=== PATIENT | female | born 1990 | race Asian ===

== ENCOUNTER 2017-02-26 12:30 | Emergency (ER) | payer OTHER ==
[2017-02-26] MEDS ORDERED: Ondansetron INJ* 2 MG/ML VIAL IV ONE ×2 (13:58→19:25)
[2017-02-26] MEDS ORDERED: Ketorolac INJ* 30 MG/ML 1 ML VIAL IV ONE (13:58)
[2017-02-26] MEDS: NS 0.9% 1000 ML* 2,000 ML IV ONE ×2 (14:15→14:51)
[2017-02-26 14:18] LABS: Hematocrit 45 % (35-47); Hemoglobin 15.2 g/dl (12.0-16.0); Mean Corpuscular HGB Conc 34 g/dl (31-36); Mean Corpuscular Hemoglobin 31 pg (27-31); Mean Corpuscular Volume 90 fL (80-97); Mean Platelet Volume 8 um3 (7.4-10.4); Red Blood Count 4.97 10^6/ul (4.0-5.4); Red Cell Distribution Width 12 % (10.5-15); White Blood Count 11.1 10^3/ul (3.5-10.8)
[2017-02-26 14:37] LABS: ALT 11 U/L (7-52); AST 20 U/L (13-39); Albumin 4.9 g/dL (3.2-5.2); Alkaline Phosphatase 52 U/L (34-104); Anion Gap 12 mmol/L (2-11); BUN/Creatinine Ratio 21.7 (8-20); Blood Urea Nitrogen 15 mg/dL (6-24); C Reactive Protein 13.58 mg/L (< 5.00); CO2 Carbon Dioxide 22 mmol/L (22-32); Calcium 9.5 mg/dL (8.6-10.3); Chloride 100 mmol/L (101-111); EGFR African American 133.3 (>60); EGFR Non-African American 103.7 (>60); Globulin 2.6 g/dL (2-4); Glucose 101 mg/dL (70-100); Lipase 17 U/L (11.0-82.0); Potassium 3.2 mmol/L (3.5-5.0); Sodium 134 mmol/L (133-145); Total Protein 7.5 g/dL (6.4-8.9)
--- NOTE | 2017-02-26 14:43 | ED ---
Abdominal Pain/Female - HPI Summary HPI Summary: 26 female presents with complaints of profuse vomiting, feeling feverish and lightheadedness that began around 0500 today 02/26/17. Patient states she has some diffuse abdominal pain/cramping but does not appear to be localized to one quadrant. She denies diarrhea, blood in stool or vomit and changes to bowel movements. Admits to chronic loose stools. Denies urinary and genitalia symptoms. Denies , has IUD. She has not taken any medication for the current symptoms. She has been unable to keep anything down. Has experienced about 7-8 episodes of vomiting. Afebrile currently. No significant medical problems. Denies chest pain, difficulty breathing, and headache. Has not had the flu shot this year. At left over take out [place] food for lunch yesterday and made steak that she states was rare last night for dinner. - History of Current Complaint Hx Obtained From: Patient Hx Last Menstrual Period: 2 MONTHS AGO (HAS IUD) ?: No Onset/Duration: Sudden Onset, Lasting Hours Timing: Constant Severity Initially: Mild Severity Currently: None Pain Intensity: 0 Pain Scale Used: 0-10 Numeric Location: Diffuse Radiates: No Character: Cramping Aggravating Factor(s): Food, Movement Alleviating Factor(s): Vomiting Associated Signs and Symptoms: Positive: Fever, Decreased Appetite, Nausea, Vomiting <June Miner - Last Filed: 02/26/17 21:23> - HPI Summary HPI Summary: I was available for consultation. This patient was seen by mid level provider. The patient was not presented, seen, or examined by me. WR. <Cortez Keene - Last Filed: 02/27/17 07:44> - History of Current Complaint Chief Complaint: EDNauseaVomitDiarrh Stated Complaint: VOMITING/FEVER/BODY ACHES Time Seen by Provider: 02/26/17 13:43 Allergies/Adverse Reactions: Allergies Allergy/AdvReac Type Severity Reaction Status Date / Time Sulfa Antibiotics Allergy Severe "EXTREMEM Verified 06/27/16 20:34 ACID REFLUX" Sulfate Allergy Severe "EXTREME Verified 06/27/16 20:34 ACID REFLUX" Amoxicillin Allergy Intermediate Rash Verified 06/27/16 20:34 PMH/Surg Hx/FS Hx/Imm Hx Respiratory History: Reports: Hx Asthma Psychiatric History: Denies: Hx Eating Disorder - Surgical History Surgery Procedure, Year, and Place: none - Immunization History Immunizations Up to Date: Yes Infectious Disease History: Denies: Traveled Outside the [place] in Last 30 Days - Family History Known Family History: Positive: None - Social History Alcohol Use: Rare Substance Use Type: Reports: None Smoking Status (MU): Never Smoked Tobacco <June Miner - Last Filed: 02/26/17 21:23> Review of Systems Positive: Fever, Chills Eyes: Negative ENT: Negative Cardiovascular: Negative Respiratory: Negative Positive: Vomiting, Nausea Genitourinary: Negative Positive: Myalgia Skin: Negative Neurological: Negative Psychological: Normal All Other Systems Reviewed And Are Negative: Yes <June Miner - Last Filed: 02/26/17 21:23> Physical Exam Triage Information Reviewed: Yes Vital Signs On Initial Exam: Initial Vitals Temp Pulse Resp BP Pulse Ox 98.7 F 121 20 83/58 100 02/26/17 12:31 02/26/17 12:31 02/26/17 12:31 02/26/17 12:31 02/26/17 12:31 tachycardia and hypotension noted. Patient's BP was compared to previous and is typically low 110/100 systolic. However due to dehydration and lowering of BP fluids x 3 bags administered in ED. Vital Signs Reviewed: Yes Appearance: Positive: No Pain Distress, Well-Nourished, Ill-Appearing - nauseated Skin: Positive: Warm, Skin Color Reflects Adequate Perfusion, Dry Head/Face: Positive: Normal Head/Face Inspection Eyes: Positive: Normal, Conjunctiva Clear ENT: Positive: Normal ENT inspection, Hearing grossly normal, Pharynx normal, TMs normal Neck: Positive: Supple, Nontender, No Lymphadenopathy Respiratory/Lung Sounds: Positive: Clear to Auscultation, Breath Sounds Present. Negative: Rhonchi, Wheezes Cardiovascular: Positive: Normal, RRR, Pulses are Symmetrical in both Upper and Lower Extremities Abdomen Description: Positive: No Organomegaly, Soft, Bruit, McBurney's Point Tenderness, Other: - tender on palpation of RLQ, patient states this was also tender a week ago when evaluated by her PCP.Only tender on palpation. Patient was re-checked after toradol administration and was still experiencing pain on palpation with wincing. denies any other tenderness. Rovsing, psoas and rebound negative. Negative: CVA Tenderness (R), CVA Tenderness (L), Distended, Guarding , Hernia @, Peritoneal Signs Bowel Sounds: Positive: Present, Hyperactive Pelvic Exam: Positive: external exam normal - per patient Musculoskeletal: Positive: Normal, Strength/ROM Intact Neurological: Positive: Normal, Sensory/Motor Intact, Alert, Oriented to Person Place, Time, CN Intact II-III, Normal Gait Psychiatric: Positive: Normal, Affect/Mood Appropriate AVPU Assessment: Alert <June Miner - Last Filed: 02/26/17 21:23> Vital Signs On Initial Exam: Initial Vitals Temp Pulse Resp BP Pulse Ox 98.7 F 121 20 83/58 100 02/26/17 12:31 02/26/17 12:31 02/26/17 12:31 02/26/17 12:31 02/26/17 12:31 <Cortez Keene - Last Filed: 02/27/17 07:44> Diagnostics - Vital Signs Vital Signs Temp Pulse Resp BP Pulse Ox 02/26/17 13:35 100.1 F 116 24 85/56 100 02/26/17 12:31 98.7 F 121 20 83/58 100 - Laboratory Result Diagrams: 02/26/17 14:00 02/26/17 14:00 Lab Statement: Any lab studies that have been ordered have been reviewed, and results considered in the medical decision making process. <June Miner - Last Filed: 02/26/17 21:23> - Vital Signs Vital Signs Temp Pulse Resp BP Pulse Ox 02/26/17 19:48 99.1 F 116 19 110/68 02/26/17 16:03 113 98 02/26/17 16:00 99/70 02/26/17 15:58 115 98 02/26/17 15:31 107 91/51 100 02/26/17 15:30 107 86/39 99 02/26/17 15:00 105 92/47 95 02/26/17 14:32 102 16 103/57 100 02/26/17 14:30 102 103/68 99 02/26/17 14:19 100 103/57 100 02/26/17 14:03 106 100 02/26/17 14:00 101/67 02/26/17 13:59 106 100 02/26/17 13:48 107 99 02/26/17 13:47 106/71 02/26/17 13:35 100.1 F 116 24 85/56 100 02/26/17 12:31 98.7 F 121 20 83/58 100 - Laboratory Lab Results: Lab Results 02/26/17 02/26/17 02/26/17 Range/Units 14:00 14:00 14:00 WBC 11.1 H (3.5-10.8) 10^3/ul RBC 4.97 (4.0-5.4) 10^6/ul Hgb 15.2 (12.0-16.0) g/dl Hct 45 (35-47) % MCV 90 (80-97) fL MCH 31 (27-31) pg MCHC 34 (31-36) g/dl RDW 12 (10.5-15) % Plt Count 213 (150-450) 10^3/ul MPV 8 (7.4-10.4) um3 Neut % (Auto) 96.3 H (38-83) % Lymph % (Auto) 1.6 L (25-47) % [place] % (Auto) 1.8 (1-9) % Eos % (Auto) 0.1 (0-6) % Baso % (Auto) 0.2 (0-2) % Absolute Neuts (auto) 10.7 H (1.5-7.7) 10^3/ul Absolute Lymphs (auto) 0.2 L (1.0-4.8) 10^3/ul Absolute Monos (auto) 0.2 (0-0.8) 10^3/ul Absolute Eos (auto) 0 (0-0.6) 10^3/ul Absolute Basos (auto) 0 (0-0.2) 10^3/ul Absolute Nucleated RBC 0.01 10^3/ul Nucleated RBC % 0 Sodium 134 (133-145) mmol/L Potassium 3.2 L (3.5-5.0) mmol/L Chloride 100 L (101-111) mmol/L Carbon Dioxide 22 (22-32) mmol/L Anion Gap 12 H (2-11) mmol/L BUN 15 (6-24) mg/dL Creatinine 0.69 (0.51-0.95) mg/dL Est GFR ( Amer) 133.3 (>60) Est GFR (Non-Af Amer) 103.7 (>60) BUN/Creatinine Ratio 21.7 H (8-20) Glucose 101 H (70-100) mg/dL Lactic Acid 1.5 (0.5-2.0) mmol/L Calcium 9.5 (8.6-10.3) mg/dL Magnesium 1.6 L (1.9-2.7) mg/dL Total Bilirubin 1.80 H (0.2-1.0) mg/dL AST 20 (13-39) U/L ALT 11 (7-52) U/L Alkaline Phosphatase 52 (34-104) U/L C-Reactive Protein 13.58 H (< 5.00) mg/L Total Protein 7.5 (6.4-8.9) g/dL Albumin 4.9 (3.2-5.2) g/dL Globulin 2.6 (2-4) g/dL Albumin/Globulin Ratio 1.9 (1-3) Lipase 17 (11.0-82.0) U/L Beta HCG, Quant < 0.60 mIU/mL Urine Color Urine Appearance Urine pH (5-9) Ur Specific [place] (1.010-1.030) Urine Protein (Negative) Urine Ketones (Negative) Urine Blood (Negative) Urine Nitrate (Negative) Urine Bilirubin (Negative) Urine Urobilinogen (Negative) Ur Leukocyte Esterase (Negative) Urine Glucose (Negative) Influenza A (Rapid) (Negative) Influenza B (Rapid) (Negative) 02/26/17 02/26/17 Range/Units 14:46 16:00 WBC (3.5-10.8) 10^3/ul RBC (4.0-5.4) 10^6/ul Hgb (12.0-16.0) g/dl Hct (35-47) % MCV (80-97) fL MCH (27-31) pg MCHC (31-36) g/dl RDW (10.5-15) % Plt Count (150-450) 10^3/ul MPV (7.4-10.4) um3 Neut % (Auto) (38-83) % Lymph % (Auto) (25-47) % [place] % (Auto) (1-9) % Eos % (Auto) (0-6) % Baso % (Auto) (0-2) % Absolute Neuts (auto) (1.5-7.7) 10^3/ul Absolute Lymphs (auto) (1.0-4.8) 10^3/ul Absolute Monos (auto) (0-0.8) 10^3/ul Absolute Eos (auto) (0-0.6) 10^3/ul Absolute Basos (auto) (0-0.2) 10^3/ul Absolute Nucleated RBC 10^3/ul Nucleated RBC % Sodium (133-145) mmol/L Potassium (3.5-5.0) mmol/L Chloride (101-111) mmol/L Carbon Dioxide (22-32) mmol/L Anion Gap (2-11) mmol/L BUN (6-24) mg/dL Creatinine (0.51-0.95) mg/dL Est GFR ( Amer) (>60) Est GFR (Non-Af Amer) (>60) BUN/Creatinine Ratio (8-20) Glucose (70-100) mg/dL Lactic Acid (0.5-2.0) mmol/L Calcium (8.6-10.3) mg/dL Magnesium (1.9-2.7) mg/dL Total Bilirubin (0.2-1.0) mg/dL AST (13-39) U/L ALT (7-52) U/L Alkaline Phosphatase (34-104) U/L C-Reactive Protein (< 5.00) mg/L Total Protein (6.4-8.9) g/dL Albumin (3.2-5.2) g/dL Globulin (2-4) g/dL Albumin/Globulin Ratio (1-3) Lipase (11.0-82.0) U/L Beta HCG, Quant mIU/mL Urine Color Yellow Urine Appearance Clear Urine pH 6.0 (5-9) Ur Specific [place] 1.013 (1.010-1.030) Urine Protein Negative (Negative) Urine Ketones 2+ H (Negative) Urine Blood Negative (Negative) Urine Nitrate Negative (Negative) Urine Bilirubin Negative (Negative) Urine Urobilinogen Negative (Negative) Ur Leukocyte Esterase Negative (Negative) Urine Glucose Negative (Negative) Influenza A (Rapid) Negative (Negative) Influenza B (Rapid) Negative (Negative) Result Diagrams: 02/26/17 14:00 02/26/17 14:00 Lab Statement: Any lab studies that have been ordered have been reviewed, and results considered in the medical decision making process. <Cortez Keene - Last Filed: 02/27/17 07:44> Re-Evaluation - Re-Evaluation First Eval Re-Evaluation Time: 14:30 Change: Improved - patient was feeling much better after fluids, toradol and zofran Second Eval Re-Evaluation Time: 17:06 Change: Improved - patient still feeling better, almost finished with contrast to have CT scan <June Miner - Last Filed: 02/26/17 21:23> Abdominal Pain Fem Course/Dx - Course Course Of Treatment: Given toradol, fluids and zofran- patient had relief. Labs and urinalysis ordered. Influenza culture obtained and negative. Due to PE findings of RLQ pain on palpation on-going x 1 week with new symptoms of vomiting and nausea and lab results of elevated WBC with left shift and dehydration, CT scan was appropriate. Magnesium was low and given 1 gram IV to replenish. Potassium also low given 40mg oral. Awaiting CT scan and results before discharge to rule out appendicitis. If this is normal, patient appears to be suffering from a viral GI gastroenteritis or food posioning. Patient signed out to Shala Corley PA-C at 17:30. - Diagnoses Differential Diagnosis: Positive: Appendicitis, Constipation, Ovarian Cyst, , Urinary Tract Infection, Other - gastroenteritis, food poisoining - Provider Notifications Discussed Care Of Patient With: Shala Corley PA-C, Dr Keene <June Miner - Last Filed: 02/26/17 21:23> <Cortez Keene - Last Filed: 02/27/17 07:44> - Diagnoses Provider Diagnoses: Nausea & vomiting Discharge - Discharge Plan Discharge Disposition Comment: Signed out to Shala Corley PA-C at 17:30 <June Miner - Last Filed: 02/26/17 21:23> <Cortez eKene - Last Filed: 02/27/17 07:44> - Discharge Plan Condition: Stable Disposition: OTHER Prescriptions: Ondansetron ODT TAB* [Zofran 4 MG Odt TAB*] 4 mg PO Q8H PRN #9 tab.odt PRN Reason: Nausea Patient Education Materials: Dehydration (ED), Gastroenteritis (ED) Referrals: Bebeto Romeo MD [Primary Care Provider] - Additional Instructions: You appear to have a viral gastroenteritis. This may last 24-72 hours. It is important that you continue to drink plenty of hydrating fluids to avoid recurrence of dehydration. Nausea medication has been sent to your pharmacy for you. Also, you may take acetaminophen alternating with ibuprofen for pain, fever. Follow-up with your PCP if symptoms persist. *if you develop a fever > 103F despite taking medications, develop intractable vomiting/diarrhea longer than 24 hours and/or have chest pain, difficulty breathing, return to ED
[2017-02-26 15:15] LABS: Magnesium 1.6 mg/dL (1.9-2.7)
[2017-02-26 16:13] LABS: Urine Bilirubin Negative (Negative); Urine Glucose Negative (Negative); Urine Nitrite Negative (Negative)
[2017-02-26] MEDS ORDERED: Magnesium Sulfate 1 GM IV* 1 GM/100 ML BAG IV ONE (16:54)
[2017-02-26] MEDS ORDERED: NS 0.9% 1000 ML* 1,000 ML IV ONE (17:07)
[2017-02-26] MEDS ORDERED: Potassium Chlor TAB* 20 MEQ TAB.ER PO ONE (17:27)
[2017-02-26] MEDS ORDERED: Iohexol 300* (CONTRAST) 10 ML SDV IV ONE (17:30)
--- NOTE | 2017-02-26 18:32 | RAD ---
INDICATION: Vomiting, fever, body aches. Assess for appendicitis. COMPARISON: None. TECHNIQUE: Multidetector CT images were obtained from the lung bases to the ischial tuberosities with 76 mL Omnipaque 300 IV and oral contrast. Multiplanar reformation. REPORT: Unremarkable visualized inferior thorax. Mild periportal edema corresponds with high state of hydration with full physiologic distention of the IVC noted. No suspicious finding of the liver. Negative for CT abnormality of the gallbladder, pancreas, spleen. Negative for CT abnormality of the upper GI, small bowel, retrocecal appendix, colon. Negative for ascites, free air, hernias. Normal adrenal glands. Unremarkable kidneys with symmetric nephrograms and pyelograms. Unremarkable nondilated ureters and moderately distended urinary bladder. Anteverted uterus. IUD in place. Unremarkable adnexal regions. Unremarkable dominant retroperitoneal vasculature. Negative for lymphadenopathy. Chronic appearing bilateral L5 spondylolysis without associated spondylolisthesis. Multilevel mild spinal dysraphism from L5 caudal without CT evidence for a myelomeningocele. No suspicious osseous lesions evident. IMPRESSION: 1. Normal appendix documented. 2. No acute abdominal pelvic pathologic process evident.
--- NOTE | 2017-02-26 19:32 | ED ---
Progress - Progress Note Progress Note: Pt signed out by June Miner PA-C. Pt presented today w/ acute onset nausea and vomiting at 500. This was followed by chills and subjective fever. She came in today as she felt horrible. Labs indicate dehydration and lack of infectious cause such as influenza, pancreatitis, hepatitis, etc. Her WBC's are mildly elevated and CT scan normal. She has had improvement of sx since receiving IVF, zofran, potassium PO, magnesium IV and toradol. Nausea has returned after many hours and is requesting more medication for this now. Will provide and d/c home with PO zofran as well - encouraged fluids, rest and f/u w/ PCP as she feel necessary. Suspect this is a viral GI infection that should be self-limiting in 24-72 hours If symptoms worsen, may return to ED. Pt agrees w/ plan. Re-Evaluation - Re-Evaluation First Eval Re-Evaluation Time: 14:30 Change: Improved - patient was feeling much better after fluids, toradol and zofran Second Eval Re-Evaluation Time: 17:06 Change: Improved - patient still feeling better, almost finished with contrast to have CT scan Course/Dx - Course Course Of Treatment: Given toradol, fluids and zofran- patient had relief. Labs and urinalysis ordered. Due to PE findings of RLQ pain on palpation on-going x 1 week with new symptoms of vomiting and nausea and lab results of elevated WBC with left shift and dehydration, CT scan was appropriate. Magnesium was low and given 1 gram IV to replenish. Potassium also low given 40mg oral. - Diagnoses Provider Diagnoses: Nausea & vomiting
[2017-02-26] MEDS ORDERED: PROCHLORPERAZINE INJ 5 MG/ML 2 ML VIAL IV ONE (19:35)
[2017-02-26 19:50] VITALS: BP 110/68
== END 2017-02-26 19:48 ==
LOC: ED 12:30
DX: R11.2 Nausea with vomiting, unspecified (principal); R50.9 Fever, unspecified; R42 Dizziness and giddiness; M79.1 Myalgia
CPT/HCPCS: 36415; 74177; 80053; 81003; 83605; 83690; 83735; 84702; 85025; 86140; 87502; 96361; 96374; 96375; 99283; A9270-GY; J0780; J1885; J2405; Q9967

== ENCOUNTER 2019-10-24 20:45 | Emergency (ER) | payer OTHER ==
[2019-10-24 21:00] VITALS: BP 101/66
--- NOTE | 2019-10-24 21:14 | UC ---
Skin Complaint HPI - HPI Summary HPI Summary: 29 yo began use of lamotrigine 25mg 2 weeks ago for treatment of anxiety and depression, with development of a pruritic whole body rash x 2 days ago. Increasing itch tonight with spread of rash on anterior thighs and trunk. She does not have associated fever, and has no tongue or oral swelling. Hx of exercise-induced asthma, with use of albuterol today after shovelling snow. Past hx of psoriasis. - History of Current Complaint Chief Complaint: UCRash Time Seen by Provider: 10/24/19 21:00 Stated Complaint: RASH Hx Obtained From: Patient Hx Last Menstrual Period: iud Onset/Duration: Gradual Onset, Lasting Days - 3 Skin Exposure Onset/Duration: Weeks Ago - began lamotrigine 2 weeks ago Onset Severity: Mild Current Severity: Moderate Pain Intensity: 0 Location: Diffuse Character: Pruritus, Redness, Raised Aggravating Factor(s): Clothing, Touch Alleviating Factor(s): OTC Creams/Salves - tried 1% hydrocortisone Associated Signs & Symptoms: Negative: Nausea, Vomiting, Difficulty Breathing Related History: Recent change in medication - Allergy/Home Medications Allergies/Adverse Reactions: Allergies Allergy/AdvReac Type Severity Reaction Status Date / Time amoxicillin Allergy Rash Verified 12/06/18 08:29 Sulfa (Sulfonamide Allergy See Comment Verified 12/06/18 08:29 Antibiotics) Home Medications: Home Medications lamoTRIgine TAB(*) [LaMICtal TAB(*)] 25 mg PO BEDTIME 10/24/19 [History Confirmed 10/24/19] PMH/Surg Hx/FS Hx/Imm Hx Previously Healthy: Yes Psychological History: Anxiety, Depression - Surgical History Surgical History: None Surgery Procedure, Year, and Place: none - Family History Known Family History: Positive: Other - mother of CA colon; father has dementia - Social History Occupation: Employed Full-time Lives: Dormitory/Roommates Alcohol Use: Occasionally Substance Use Type: None Smoking Status (MU): Never Smoked Tobacco Review of Systems All Other Systems Reviewed And Are Negative: Yes Constitutional: Positive: Negative Skin: Positive: Rash Eyes: Positive: Negative ENT: Positive: Negative Respiratory: Positive: Other - hx of exercise-induced asthma Cardiovascular: Positive: Negative Gastrointestinal: Positive: Negative Genitourinary: Positive: Negative Motor: Positive: Negative Neurovascular: Positive: Negative Musculoskeletal: Negative: Arthralgia Neurological: Positive: Negative Psychological: Positive: Negative - mood currently stable. Planned follow up with [facility] nurse practitioner. Is Patient Immunocompromised?: No Physical Exam Triage Information Reviewed: Yes Appearance: Well-Appearing, No Pain Distress Vital Signs: Initial Vital Signs Temp 98.8 F 10/24/19 20:54 Pulse 119 10/24/19 20:54 Resp 16 10/24/19 20:54 BP 101/66 10/24/19 20:54 Pulse Ox 98 10/24/19 20:54 Eyes: Positive: Conjunctiva Clear ENT: Positive: Normal ENT inspection, Pharyngeal erythema, Other - no oral swelling. Neck: Positive: Supple, Nontender, No Lymphadenopathy Respiratory: Positive: Lungs clear, Normal breath sounds Cardiovascular Exam: Normal Cardiovascular: Positive: RRR, No Murmur Musculoskeletal Exam: Normal Neurological Exam: Normal Neurological: Positive: Alert, Muscle Tone Normal Psychological Exam: Normal Skin: Positive: Rashes - scattered macular papular rash on trunk, anterior thighs and upper arms. Almost confluent on the upper medial 1/3 of the thigh, more scattered in other areas, with less on the posterior trunk and legs. Course/Dx - Course Course Of Treatment: Discussed pros and cons of oral steroids, and advised regarding possible affect on sleep and mood. Oral benadryl as needed, and will prescribe a topical steroid for use particularly in the event that she does not tolerate oral steroids. - Differential Diagnoses - Skin Complaint Differential Diagnoses: Allergic Reaction, Angioedema, Cortez-Valentino Syndrome - Diagnoses Provider Diagnosis: Allergic drug reaction Discharge ED - Sign-Out/Discharge Documenting (check all that apply): Patient Departure All imaging exams completed and their final reports reviewed: No Studies - Discharge Plan Condition: Stable Disposition: HOME Prescriptions: predniSONE [Prednisone 20 MG TAB] 40 mg PO DAILY #8 tablet Triamcinolone 0.5% CREAM(NF) [Triamcinolone 0.5% CREAM*] 1 applic TOPICAL BID # 60 mg Patient Education Materials: Adverse Drug Reaction (ED) Referrals: Bebeto Romeo MD [Primary Care Provider] - Additional Instructions: You have taken prednisone 40mg tonight. If you tolerate it, take the next dose and following doses daily in the morning with food. Use benadryl 25mg every 4 hours if needed for itch. You can soak in oatmeal baths to relieve itching (can create by placing a handful of oats in cheesecloth and squeezing the extract). Stay well hydrated and moisturized --anticipate that you will have some skin flaking as the rash resolves. Anticipate that it will take up to a week for the rash to subside, and have a follow up should the rash worsen despite these measures. - Billing Disposition and Condition Condition: STABLE Disposition: Home
[2019-10-24] MEDS ORDERED: diPHENhydraMINE PO* 25 MG PO ONE (21:26)
--- OUTSIDE RECORDS SUMMARY | 2019-10-25 16:33 | XMS REPORT | Summary of Care ---
:1990 Author Organization [facility] Address [address] [facility] [place] [address] Care Team Providers Name Role Phone Bebeto Romeo Primary Care Provider Reason for Referral MRI/CAT/PET Scan (Routine) Status Reason Specialty Diagnoses / Referred By Referred To Procedures Contact Contact Authorized Diagnoses Pelvic pain Bebeto Romeo MD Procedures US PELVIC COMPLETE WITH EV PROBE [address] [place] [address] Reason for Visit Reason Comments Other pt has cyst on inside of right knee, would like referral to specialist. Follow Up pt presents for follow up with meds, flu and 2nd hep B dose. Encounter Details Date Type Department Care Team Description 10/06/2019 Office Visit [facility] Bebeto Romeo MD Pelvic pain (Primary Dx); Practice [address] [facility] Need for prophylactic vaccination against hepatitis A; [address] [place] [address] Anxiety and depression; [place] [address] Skin lesion of right lower limb [phone] Allergies Active Allergy Reactions Severity Noted Date Comments Amoxicillin, Anhydrous Rash 06/10/2010 As a child Cat Hair Extract Hives 09/22/2013 Dog Respiratory Reaction 02/13/2017 Kiwi Extract Other 01/08/2012 Tongue feels itchy Pineapple Other 01/08/2012 Tongue gets itchy and tongue swells. Sulfa Antibiotics GI Reaction High 06/27/2016 documented as of this encounter (statuses as of 10/07/2019) Medications Medication Sig Dispensed Refills Start Date End Date Status IBUPROFEN 200 PO Take by mouth. 0 Active Levonorgestrel by Intrauterine 0 Active (MIRENA) 20 route. MCG/24HR Intrauterine IUD fluticasone Take 2 Puffs by 1 Inhaler 5 02/13/2017 Active (FLOVENT) 44 inhalation TWICE MCG/ACT Inhalation DAILY. Aerosol clonazePAM Take 1 Tab by 30 Tab 0 09/09/2017 Active (KLONOPIN) 0.5 MG mouth DAILY Oral Tab NEEDED (anxiety). Max Daily Amount: 0.5 mg. famotidine (PEPCID) Take 1 Tab by 30 Tab 0 05/17/2018 Active 40 MG Oral mouth DAILY. TabIndications: Hives, Epigastric pain escitalopram Take 1 Tab by 30 Tab 0 09/17/2018 Active (LEXAPRO) 5 MG Oral mouth DAILY. Tab VENTOLIN HFA 108 INHALE 2 PUFFS BY 18 g 0 05/30/2019 Active (90 Base) MCG/ACT MOUTH EVERY 6 Inhalation Aero HOURS NEEDED SolnIndications: FOR ASTHMA Mild asthma without complication, unspecified whether persistent propranolol TAKE 1 TABLET BY 0 03/01/2018 10/06/20 Discontinued (INDERAL) 10 MG MOUTH TWICE A DAY 19 Oral Tab NEEDED FOR ANXIETY OR PANIC documented as of this encounter (statuses as of 10/07/2019) Active Problems Problem Noted Date Knee pain, bilateral 09/22/2013 Allergic rhinitis due to cats 07/09/2010 Allergic rhinitis due to dust 07/09/2010 Mild asthma 07/09/2010 Anxiety and depression documented as of this encounter (statuses as of 10/07/2019) Resolved Problems Problem Noted Date Resolved Date Gastritis 07/09/2010 06/18/2011 Unspecified gastritis and gastroduodenitis without mention 07/01/20102009 of hemorrhage Unspecified asthma(493.90) 06/10/2010 07/09/2010 ENVIRONMENTAL ALLERGIES 06/10/2010 07/09/2010 Overview: ? Bee stings documented as of this encounter (statuses as of 10/07/2019) Immunizations Name Administration Dates Next Due Hep A / Hep B Combined Vaccine (Adult) 10/06/2019, 01/24/2019 Influenza (IM) Preservative Free 10/06/2019, 01/24/2019 TDAP Vaccine 01/24/2019 documented as of this encounter Social History Tobacco Use Types Packs/Day Years Used Date Never Smoker Smokeless Tobacco: Never Used Alcohol Use Drinks/Week oz/Week Comments No Sex Assigned at Date Recorded Not on file Job Start Date Occupation Industry Not on file Not on file Not on file Travel History Travel Start Travel End No recent travel history available. documented as of this encounter Last Filed Vital Signs Vital Sign Reading Time Taken Comments Blood Pressure 104/64 10/06/2019 10:54 AM EST Pulse 78 10/06/2019 10:54 AM EST Temperature 36.7 10/06/2019 10:54 AM EST C (98.1 F) Respiratory Rate - - Oxygen Saturation 98% 10/06/2019 10:54 AM EST Inhaled Oxygen Concentration - - Weight 58 kg (127 lb 12.8 oz) 10/06/2019 10:54 AM EST Height 152.4 cm (5') 10/06/2019 10:54 AM EST Body Mass Index 24.96 10/06/2019 10:54 AM EST documented in this encounter Progress Notes Bebeto Romeo MD - 10/06/2019 10:40 AM EST PATIENT: Rosita Yun : 1990 DATE OF SERVICE: 10/06/2019 CHIEF COMPLAINT: Chief Complaint Patient presents with Other pt has cyst on inside of right knee, would like referral to specialist. Follow Up pt presents for follow up with meds, flu and 2nd hep B dose. Subjective HISTORY OF PRESENT ILLNESS: Rosita Yun is a 29-y.o. female. Has several issues to discuss. 1. Flu shot. 2. 2nd Hep B /Hep A combo 3. She has a cyst a long time on the right medial knee . It felt funny last summer , like it burst on the inside With bruising and pain . Still sore. She would like it removed 4. She would like to go to [facility] for right sided pelvic pain when she has intercourse. About 50% of the time. Otherwise does not bother her . Due for her pap next spring. Her psychiatrist is Selene Pena. She has been on a variety of antidepressants they work 10 months andthen stop working . Most recently trintellix caused vomiting. On lexapro recently That is ending and will [facility] . She has no suicidal plan Past Medical History: Diagnosis Date Acne Anxiety and depression ENVIRONMENTAL ALLERGIES 06/10/2010 Gastritis 07/01/2010 EGD Unspecified asthma(493.90) 06/10/2010 Vulvovaginitis Family History Problem Relation Age of Onset Hypertension Father Colon Cancer Mother 60 Current Outpatient Medications Medication Sig clonazePAM (KLONOPIN) 0.5 MG Oral Tab Take 1 Tab by mouth DAILY NEEDED (anxiety). Max Daily Amount: 0.5 mg. escitalopram (LEXAPRO) 5 MG Oral Tab Take 1 Tab by mouth DAILY. famotidine (PEPCID) 40 MG Oral Tab Take 1 Tab by mouth DAILY. fluticasone (FLOVENT) 44 MCG/ACT Inhalation Aerosol Take 2 Puffs by inhalation TWICE DAILY. IBUPROFEN 200 PO Take by mouth. Levonorgestrel (MIRENA) 20 MCG/24HR Intrauterine IUD by Intrauterine route. VENTOLIN HFA 108 (90 Base) MCG/ACT Inhalation Aero Soln INHALE 2 PUFFS BY MOUTH EVERY 6 HOURSAS NEEDED FOR ASTHMA No current facility-administered medications for this visit. Allergies Allergen Reactions Sulfa Antibiotics GI Reaction Amoxicillin, Anhydrous Rash As a child Cat Hair Extract Hives Dog Respiratory Reaction Kiwi Extract Other Tongue feels itchy Pineapple Other Tongue gets itchy and tongue swells. Social History Socioeconomic History Marital status: Single Spouse name: Not on file Number of children: Not on file Years of education: Not on file Highest education level: Not on file Occupational History Not on file Social Needs Financial resource strain: Not on file Food insecurity: Worry: Not on file Inability: Not on file Transportation needs: Medical: Not on file Non-medical: Not on file Tobacco Use Smoking status: Never Smoker Smokeless tobacco: Never Used Substance and Sexual Activity Alcohol use: No Drug use: No Sexual activity: Yes Lifestyle Physical activity: Days per week: Not on file Minutes per session: Not on file Stress: Not on file Relationships Social connections: Talks on phone: Not on file Gets together: Not on file Attends rastafari service: Not on file Active member of club or organization: Not on file Attends meetings of clubs or organizations: Not on file Relationship status: Not on file Intimate partner violence: Fear of current or ex partner: Not on file Emotionally abused: Not on file Physically abused: Not on file Forced sexual activity: Not on file Other Topics Concern Back Care Not Asked Bike Helmet Not Asked Blood Transfusions Not Asked Caffeine Concern Not Asked Exercise Not Asked Hobby Hazards Not Asked International Travel Not Asked Service Not Asked Occupational Exposure Not Asked Seat Belt Not Asked Self-Exams Not Asked Sleep Concern Not Asked Special Diet Not Asked Stress Concern Not Asked Weight Concern Not Asked Social History Narrative 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 Over the last 2 weeks, have you been feeling down, depressed, anxious, or hopeless?: 3 Over the past 2 weeks, have you felt little interest or pleasure in doing things ?: 2 Trouble falling or staying asleep, or sleeping too much?: 0 Feeling tired or having little energy?: 3 Poor appetite or overeating?: 2 Feeling bad about yourself or that you are a failure or have let yourself or your family down?: 3 Trouble concentrating on things, such as reading the newspaper or watching TV?: 1 Moving or speaking so slowly that other people notice OR being fidgety and restless?: 1 Thoughts that you would be better off or of hurting yourself in some way?: 1 PHQ-9 TOTAL SCORE: 16 How difficult have these problems made it for you to do your work, take care of things at home or get along with people?: Very difficult In the past 2 years, have you felt depressed or sad most days, even if you felt ok?: Yes REVIEW OF SYSTEMS: ROS Objective PHYSICAL EXAM: VITALS: BP 104/64 (BP Location: Left arm, Patient Position: Sitting) | Pulse 78 | Temp 98.1 F(36.7 C) | Ht 5' (1.524 m) | Wt 127 lb 12.8 oz (58 kg ) | SpO2 98% | BMI 24.96 kg/m Bodymass index is 24.96 kg/m. Physical Exam Vitals signs reviewed. Constitutional: Appearance: She is not ill-appearing. Cardiovascular: Rate and Rhythm: Normal rate and regular rhythm. Pulmonary: Effort: Pulmonary effort is normal. No respiratory distress. Abdominal: Palpations: There is no mass. Tenderness: There is no tenderness. Skin: Comments: Nickel sized cyst medial right knee Psychiatric: Comments: Dress and hygiene good Good eye contact Thoughts and speech normal Affect Appropriate Mood normal ASSESSMENT / IMPRESSION: ICD-9-CM ICD-10-CM 1. Pelvic pain with intercourse, Will get the ultrasound and we can refer to [facility] [id number] R10.2 US PELVIC COMPLETE WITH EV PROBE 2. Need for prophylactic vaccination against hepatitis A and B. #2 V05.3 Z23 [place] HEPATITIS A / HEPATITIS B COMBO (ADULT) 3. Anxiety and depression . Multiple anti depressants tried. Good idea to try mood stablizer 300.00 F41.9 311 F32.9 4. Skin lesion of right lower limb She wants it removed .I dont think it is into the bone so try Larry Guerrero. 709.9 L98.9 Plan Author: Bebeto Romeo MD 10/06/2019 20:21 documented in this encounter Plan of Treatment Date Type Specialty Care Team Description 10/12/2019 Ancillary Procedure Radiology Name Type Priority Associated Diagnoses Order Schedule US PELVIC COMPLETE WITH Imaging Routine Pelvic pain Expected: 10/06/2019, EV PROBE Expires: 10/05/2020 Health Maintenance Due Date Last Done Comments PNEUMOCOCCAL 0-64 YRS (1 of 1997 1 - PPSV23) HIV SCREENING 2006 INFLUENZA VACCINE (#1) 2019 01/24/2019 PAP SMEAR 02/14/2020 02/13/2017, 02/13/2017, 02/13/2017, Additional history exists DEPRESSION SCREENING 10/06/2020 10/06/2019, 10/06/2019 HPV IMMUNIZATION SERIES Aged Out No longer eligible based on patient's age to complete this topic MENINGOCOCCAL VACCINE IMM Aged Out No longer eligible based on patient's age to complete this topic documented as of this encounter Goals Goal Patient Goal Associated Recent Patient-Stated? Author Type Problems Progress Depression Depression 16 No anu Romeo (PHQ-9) (10/06/2019 MD Bebeto total score < 5 10:50 AM EST) Note: This is an individualized treatment (depression) goal for Rositagerardo Yun: Displayed above is your goal for a depression screening (PHQ-9) score that would indicate good control of your depression. Keep a regular sleep schedule Lifestyle No Bebeto Romeo MD Note: This is an individualized lifestyle goal for Rosita Yun: Please maintain a regular sleep schedule. This may help with some symptoms of depression. Take all prescribed medications as directed Self-management No Bebeto Romeo MD Note: This is an individualized self-management goal for Rosita Yun: Please take all prescribed medications as directed. 1. Do not skip doses. If you cannot afford your medications, talk with your doctor. 2. Use a pill reminder system such as a pill box if needed. Your pharmacist can help you with this. 3. Contact your Pharmacy 5 days before your medication runs out. If you cannot take your medications for any reasons, talk with your doctor. 4. Please bring all of your medication bottles and inhalers (or a list of all your medications/inhalers) with you to every visit. Potential barriers to meeting all of your care plan goals will continue to be addressed on an ongoing basis. documented as of this encounter Results Not on filedocumented in this encounter Visit Diagnoses Diagnosis Pelvic pain - Primary Need for prophylactic vaccination against hepatitis A Need for prophylactic vaccination and inoculation against viral hepatitis Anxiety and depression Dysthymic disorder Skin lesion of right lower limb Unspecified disorder of skin and subcutaneous tissue documented in this encounter Insurance Payer Benefit Plan / Subscriber ID Effective Dates Phone Address Type Group [facility] xxxxxxxxxxx 2016-Present [place] [facility] xxxxxxxxxxx 2018-Present [place] [employer] (Work) documented as of this encounter"
== END 2019-10-24 21:45 | disposition home or self-care (01) ==
LOC: UCEAST 20:45
DX: L27.0 Generalized skin eruption due to drugs and medicaments taken internally (principal); T42.6X5A Adverse effect of other antiepileptic and sedative-hypnotic drugs, initial encounter; F41.9 Anxiety disorder, unspecified; F32.9 Major depressive disorder, single episode, unspecified; Z88.0 Allergy status to penicillin; Z88.2 Allergy status to sulfonamides; Z79.899 Other long term (current) drug therapy; Y92.9 Unspecified place or not applicable
CPT/HCPCS: 99212; A9270-GY; G0463; J7512

== ENCOUNTER 2019-12-21 11:44 | Emergency (ER) | payer BC, OTHER ==
[2019-12-21 13:10] VITALS: BP 110/71
--- NOTE | 2019-12-21 13:33 | UC ---
Complaint Female HPI - HPI Summary HPI Summary: AFTER HAVING SEX LAST NIGHT PATIENT HAD SUDDEN ONSET OF SEVERE RIGHT SIDED PELVIC CRAMPING. THE PAIN WAS SO SEVERE THAT SHE HAD AN EPISODE OF VOMITING. SHE PUT A HEATING PAD ON IT AND FELL ASLEEP. THIS MORNING IT FELT IMPROVED. SINCE IT HAS NOT COMPLETELY RESOLVED SHE CAME INTO THE UC FOR FURTHER EVALUATION. SHE DENIES ANY NAUSEA OR FEVER. NO VAGINAL BLEEDING. SHE HAS A MIRENA IUD. ALSO REPORTS A KNOWN HISTORY OF RIGHT-SIDED OVARIAN CYST. DENIES ANY URINARY SYMPTOMS. - History Of Current Complaint Chief Complaint: UCGU Stated Complaint: PELVIC PAIN Time Seen by Provider: 12/21/19 13:24 Hx Obtained From: Patient, Family/Creative Strategist - BOYFRIEND Hx Last Menstrual Period: IUD 10/2019 Onset/Duration: Sudden Onset, Lasting Hours, Still Present - BUT BETTER Timing: Constant Severity Initially: Severe Severity Currently: Mild Pain Intensity: 2 Pain Scale Used: 0-10 Numeric Character: Cramping Aggravating Factor(s): Nothing Alleviating Factor(s): Nothing Associated Signs And Symptoms: Negative: Fever, Back Pain, Vaginal Bleeding/ Discharge, Vaginal Discharge, Nausea - Allergies/Home Medications Allergies/Adverse Reactions: Allergies Allergy/AdvReac Type Severity Reaction Status Date / Time amoxicillin Allergy Rash Verified 12/21/19 12:58 Sulfa (Sulfonamide Allergy See Comment Verified 12/21/19 12:58 Antibiotics) Home Medications: Home Medications busPIRone TAB* [Buspar TAB *] 15 mg PO DAILY 12/21/19 [History Confirmed ] PMH/Surg Hx/FS Hx/Imm Hx Respiratory History: Asthma Psychological History: Anxiety, Depression - Surgical History Surgical History: None Surgery Procedure, Year, and Place: none - Family History Known Family History: Positive: None, Other - mother of CA colon; father has dementia - Social History Alcohol Use: Occasionally Substance Use Type: None Smoking Status (MU): Never Smoked Tobacco - Immunization History Most Recent Tetanus Shot: UTD Review of Systems All Other Systems Reviewed And Are Negative: Yes Constitutional: Positive: Negative Skin: Positive: Negative Respiratory: Positive: Negative Cardiovascular: Positive: Negative Gastrointestinal: Positive: Abdominal Pain, Vomiting Genitourinary: Positive: Negative Physical Exam Triage Information Reviewed: Yes Appearance: Well-Appearing, No Pain Distress, Well-Nourished Vital Signs: Initial Vital Signs Temp 98.8 F 12/21/19 13:03 Pulse 104 12/21/19 13:03 Resp 17 12/21/19 13:03 BP 110/71 12/21/19 13:03 Pulse Ox 99 12/21/19 13:03 Laboratory Results - last 24 hr 12/21/19 12/21/19 13:22 13:24 POC Urine Color Dark yellow POC Urine Clarity Cloudy POC Urine pH 6.0 POC Ur Specif [place] >= 1.030 POC Urine Protein Negative POC Ur Glucose (UA) Negative POC Urine Ketones Negative POC Urine Blood Trace-intact POC Urine Nitrite Negative POC Urine Bilirubin Negative POC Urine Urobilinogen 0.2 POC U Leukocyte Esteras 1+ A POC Ur Test Negative Vital Signs Reviewed: Yes Eyes: Positive: Conjunctiva Clear ENT: Positive: Hearing grossly normal Respiratory Exam: Normal Cardiovascular Exam: Normal Abdomen Description: Positive: Soft, Other: - DIFFUSE ABDOMINAL TENDERNESS. NO RIGIDITY OR REBOUND. NEG OBTURATOR. NEG PSOAS.. Negative: CVA Tenderness (R), CVA Tenderness (L), Distended, Guarding Bowel Sounds: Positive: Present Musculoskeletal: Positive: No Edema Neurological: Positive: Alert Psychological: Positive: Age Appropriate Behavior Skin: Negative: Rashes Complaint Female Dx - Course Course Of Treatment: PATIENT WITH SEVERE RIGHT-SIDED PELVIC CRAMPING AFTER HAVING SEX LAST NIGHT. STATES THE PAIN HAS IMPROVED BUT IS STILL PRESENT SO SHE CAME IN FOR FURTHER EVALUATION. ON EXAM PATIENT IS DIFFUSELY TENDER IN THE ABDOMEN. NO RIGIDITY OR REBOUND. DISCUSSED THE PATIENT TRANSFER TO THE EMERGENCY ROOM FOR FURTHER EVALUATION VERSUS CAREFUL OBSERVATION AT HOME. PATIENT OPTS FOR CAREFUL OBSERVATION AT HOME. ADVISED TO GO TO THE ER WITHOUT FAIL IF SHE DEVELOPS WORSENING PAIN, BLEEDING, FEVER, NAUSEA/VOMITING OR ANY OTHER CONCERNING SYMPTOMS. - Differential Dx/Diagnosis Provider Diagnosis: Lower abdominal pain Discharge ED - Sign-Out/Discharge Documenting (check all that apply): Patient Departure All imaging exams completed and their final reports reviewed: No Studies - Discharge Plan Condition: Stable Disposition: HOME Patient Education Materials: Pelvic Pain in Women (ED), Abdominal Pain (ED) Referrals: Bebeto Romeo MD [Primary Care Provider] - If Needed Additional Instructions: ABDOMINAL PAIN: There are many causes of abdominal pain. Pain can mean a serious problem requiring surgery (such as appendicitis), or an innocent problem which goes away on its own (such as a viral infection). Often, time must pass to determine the cause of pain. The physician does not feel that hospitalization is necessary, at present. Conditions may change, however, within the next 24 hours. GO TO THE ER WITHOUT FAIL IF ANY OF THE FOLLOWING OCCUR: 1) Pain which becomes more severe, steady, or becomes concentrated in one specific area. Also, pain which is more severe with movement or coughing. 2) Vomiting which persists or becomes more frequent. 3) Blood in the vomitus, urine, or bowel movements. Blood in the stool may have a tarry or black appearance. 4) Shaking chills or fever greater than 100 degrees F. 5) The abdomen becomes more distended or swollen. 6) Bowel movements cease. 7) Failure to improve as expected. OBSERVATION FOR APPENDICITIS: At this time, the abdominal pain does not seem to be appendicitis. Our next "test" will be passage of time. If you have early appendicitis, signs will appear to help us make the diagnosis. Most of the time, the pain goes away. In these cases, the pain is usually due to a virus in the lymph glands near the appendix, or due to an ovarian cyst or ovulation. Unless the pain is gone, you should come back for a recheck. This is usually done in 8 to 12 hours. Be sure you understand your follow-up instructions. GO TO THE ER IMMEDIATELY IF: (1) the pain becomes much more severe and sharply increases with movement or coughing, (2) vomiting becomes frequent, (3) there is blood in the vomit, urine, or bowel movements, (4) there are shaking chills or fever, or (5) the abdomen becomes more distended or swollen. YOUR URINE HAS BEEN SENT FOR CULTURE. WE WILL CALL YOU WITH ANY ABNORMAL RESULTS AND IF YOU NEED TO BE TREATED. - Billing Disposition and Condition Condition: STABLE Disposition: Home
--- NOTE | 2019-12-23 12:06 | UC ---
- Progress Note Progress Note: Reviewed prelim urine culture. + E coli. Sens still pending. Seen at ED yesterday as well. Reviewed ED /UC notes. No abx as yet pescribed. Reviewed medications allergies. Given severity of sx, and allergies as above, will opt for doxycycline. RN to call pt. Rx e-scribed. Pt will be notified if Cx is resistant (antibiotic modification). bun /creat good (see [employer] labs). Course/Dx - Diagnoses Provider Diagnoses: Lower abdominal pain Discharge ED - Sign-Out/Discharge Documenting (check all that apply): Post-Discharge Follow Up All imaging exams completed and their final reports reviewed: No Studies - Discharge Plan Condition: Stable Disposition: HOME Patient Education Materials: Pelvic Pain in Women (ED), Abdominal Pain (ED) Referrals: Bebeto Romeo MD [Primary Care Provider] - If Needed Additional Instructions: ABDOMINAL PAIN: There are many causes of abdominal pain. Pain can mean a serious problem requiring surgery (such as appendicitis), or an innocent problem which goes away on its own (such as a viral infection). Often, time must pass to determine the cause of pain. The physician does not feel that hospitalization is necessary, at present. Conditions may change, however, within the next 24 hours. GO TO THE ER WITHOUT FAIL IF ANY OF THE FOLLOWING OCCUR: 1) Pain which becomes more severe, steady, or becomes concentrated in one specific area. Also, pain which is more severe with movement or coughing. 2) Vomiting which persists or becomes more frequent. 3) Blood in the vomitus, urine, or bowel movements. Blood in the stool may have a tarry or black appearance. 4) Shaking chills or fever greater than 100 degrees F. 5) The abdomen becomes more distended or swollen. 6) Bowel movements cease. 7) Failure to improve as expected. OBSERVATION FOR APPENDICITIS: At this time, the abdominal pain does not seem to be appendicitis. Our next "test" will be passage of time. If you have early appendicitis, signs will appear to help us make the diagnosis. Most of the time, the pain goes away. In these cases, the pain is usually due to a virus in the lymph glands near the appendix, or due to an ovarian cyst or ovulation. Unless the pain is gone, you should come back for a recheck. This is usually done in 8 to 12 hours. Be sure you understand your follow-up instructions. GO TO THE ER IMMEDIATELY IF: (1) the pain becomes much more severe and sharply increases with movement or coughing, (2) vomiting becomes frequent, (3) there is blood in the vomit, urine, or bowel movements, (4) there are shaking chills or fever, or (5) the abdomen becomes more distended or swollen. YOUR URINE HAS BEEN SENT FOR CULTURE. WE WILL CALL YOU WITH ANY ABNORMAL RESULTS AND IF YOU NEED TO BE TREATED. - Billing Disposition and Condition Condition: STABLE Disposition: Home
== END 2019-12-21 14:20 | disposition home or self-care (01) ==
LOC: UCEAST 11:44
DX: R10.30 Lower abdominal pain, unspecified (principal); J45.909 Unspecified asthma, uncomplicated; F41.9 Anxiety disorder, unspecified; R11.10 Vomiting, unspecified; Z88.0 Allergy status to penicillin; Z88.2 Allergy status to sulfonamides; Z79.899 Other long term (current) drug therapy
CPT/HCPCS: 81003; 84702; 87077; 87086; 87186; 99211; G0463

== ENCOUNTER 2019-12-21 17:40 | Emergency (ER) | payer BC ==
--- NOTE | 2019-12-21 21:00 | ED ---
Abdominal Pain/Female - HPI Summary HPI Summary: Patient complains of right lower quadrant pain is starting last night. Pain described as severe for 2 hours last night and then improved. Current pain 2/ 10. History of right ovarian cyst 2 months ago. Mild pain with intercourse last night. One episode of vomiting last night during severe pain. Denies fever, cough, sore throat, CP, SOB, diarrhea, change in urine, change in BM, vaginal bleeding or discharge. Medical history is asthma. Abdominal surgical history is none. Sexually active, single partner. - History of Current Complaint Chief Complaint: EDAbdPain Stated Complaint: ABD PAIN PER PT Time Seen by Provider: 12/21/19 20:57 Hx Obtained From: Patient Hx Last Menstrual Period: IUD 10/2019 Onset/Duration: Sudden Onset, Lasting Hours Timing: Constant Severity Initially: Severe Severity Currently: Mild Pain Intensity: 2 Pain Scale Used: 0-10 Numeric Location: Discrete At: RLQ Radiates: No Character: Sharp Aggravating Factor(s): Movement Alleviating Factor(s): Nothing Associated Signs and Symptoms: Positive: Nausea, Vomiting Allergies/Adverse Reactions: Allergies Allergy/AdvReac Type Severity Reaction Status Date / Time amoxicillin Allergy Rash Verified 12/21/19 18:04 Sulfa (Sulfonamide Allergy See Comment Verified 12/21/19 18:04 Antibiotics) PMH/Surg Hx/FS Hx/Imm Hx Endocrine/Hematology History: Denies: Hx Diabetes, Hx Thyroid Disease Cardiovascular History: Denies: Hx Hypertension Respiratory History: Reports: Hx Asthma Denies: Hx Chronic Obstructive Pulmonary Disease (COPD) GI History: Denies: Hx Ulcer History: Denies: Hx Dialysis Sensory History: Denies: Hx Eye Prosthesis Opthamlomology History: Denies: Hx Legally Blind EENT History: Denies: Hx Deafness Psychiatric History: Denies: Hx Eating Disorder - Surgical History Surgery Procedure, Year, and Place: none Infectious Disease History: No Infectious Disease History: Denies: Hx Hepatitis, Hx Human Immunodeficiency Virus (HIV), Traveled Outside the [place] in Last 30 Days - Family History Known Family History: Positive: None, Other - mother of CA colon; father has dementia - Social History Alcohol Use: Occasionally Substance Use Type: Reports: None Smoking Status (MU): Never Smoked Tobacco Review of Systems Constitutional: Negative Eyes: Negative ENT: Negative Cardiovascular: Negative Respiratory: Negative Positive: Abdominal Pain, Vomiting, Nausea Genitourinary: Negative Musculoskeletal: Negative Skin: Negative Neurological: Negative Psychological: Normal All Other Systems Reviewed And Are Negative: Yes Physical Exam - Summary Physical Exam Summary: Tenderness right lower quadrant. Abdominal exam otherwise unremarkable. Triage Information Reviewed: Yes Vital Signs On Initial Exam: Initial Vitals Temp Pulse Resp BP Pulse Ox 99 F 102 16 111/83 98 12/21/19 17:55 12/21/19 17:55 12/21/19 17:55 12/21/19 17:55 12/21/19 17:55 Vital Signs Reviewed: Yes Appearance: Positive: Well-Appearing Skin: Positive: Warm Head/Face: Positive: Normal Head/Face Inspection Eyes: Positive: Normal Neck: Positive: Supple Respiratory/Lung Sounds: Positive: Clear to Auscultation Cardiovascular: Positive: Normal Abdomen Description: Positive: Other: Musculoskeletal: Positive: Normal Neurological: Positive: Normal Psychiatric: Positive: Normal AVPU Assessment: Alert - Nelda Coma Scale Best Eye Response: 4 - Spontaneous Best Motor Response: 6 - Obeys Commands Best Verbal Response: 5 - Oriented Coma Scale Total: 15 Procedures - Sedation Patient Received Moderate/Deep Sedation with Procedure: No Diagnostics - Vital Signs Vital Signs Temp Pulse Resp BP Pulse Ox 12/21/19 19:42 98.4 F 113 15 118/78 97 12/21/19 17:55 99 F 102 16 111/83 98 - Laboratory Result Diagrams: 12/21/19 21:19 12/21/19 21:19 Lab Statement: Any lab studies that have been ordered have been reviewed, and results considered in the medical decision making process. Abdominal Pain Fem Course/Dx - Course Course Of Treatment: Patient complains of right lower quadrant pain is starting last night. Pain described as severe for 2 hours last night and then improved. Current pain 2/10. History of right ovarian cyst 2 months ago. Mild pain with intercourse last night. One episode of vomiting last night during severe pain. Denies fever, cough, sore throat, CP, SOB, diarrhea, change in urine, change in BM, vaginal bleeding or discharge. Medical history is asthma. Abdominal surgical history is none. Sexually active, single partner. Patient tachycardic. Vital signs otherwise within normal limits. Labs unremarkable. Urine negative. Transvaginal ultrasound positive for complex cysts located in the right measuring 2.4 cm in length. This most likely presents a benign functional cyst possibly a hemorrhagic cyst. Small amount of fluid located in the pelvis. - Diagnoses Provider Diagnoses: Ovarian cyst Discharge ED - Sign-Out/Discharge Documenting (check all that apply): Patient Departure - Discharge Plan Condition: Stable Disposition: HOME Patient Education Materials: Ovarian Cyst (ED) Referrals: Bebeto Romeo MD [Primary Care Provider] - Amarjit Ramirez MD [Medical Doctor] - Additional Instructions: Alternate ibuprofen 600 mg with Tylenol 650 mg every 3 hours for right side pain. Follow-up with your [facility] or [employer] Dr. Ramirez for further evaluation of recurrent ovarian cysts. Return to the ED for any new or worsening symptoms. - Billing Disposition and Condition Condition: STABLE Disposition: Home
[2019-12-21 21:27] LABS: ABS Basophils 0.1 10^3/ul (0-0.2); ABS Eosinophils 0.2 10^3/ul (0-0.6); ABS Lymphocytes 1.1 10^3/ul (1.0-4.8); ABS Monocytes 0.6 10^3/ul (0-0.8); ABS Neutrophils 4.6 10^3/ul (1.5-7.7); Eosinophil % 2.9 %; Hematocrit 38 % (35-47); Hemoglobin 13.3 g/dL (12.0-16.0); Lymphocyte % 16.8 %; Mean Corpuscular HGB Conc 35 g/dL (31-36); Mean Corpuscular Hemoglobin 32 pg (27-31); Mean Corpuscular Volume 91 fL (80-97); Mean Platelet Volume 6.7 fL (7.4-10.4); Nucleated Red Blood Cells % 0.1; Platelet Count 235 10^3/uL (150-450); Red Blood Count 4.22 10^6 /uL (3.70-4.87); Red Cell Distribution Width 12 % (10-15); White Blood Count 6.6 10^3/uL (3.5-10.8)
[2019-12-21 21:45] LABS: ALT 9 U/L (7-52); AST 17 U/L (13-39); Albumin 4.3 g/dL (3.2-5.2); Albumin/Globulin Ratio 1.7 (1-3); Alkaline Phosphatase 58 U/L (34-104); Anion Gap 9 mmol/L (2-11); BUN/Creatinine Ratio 19.8 (8-20); Blood Urea Nitrogen 16 mg/dL (6-24); C Reactive Protein 15.62 mg/L (<8.01); CO2 Carbon Dioxide 24 mmol/L (22-32); Calcium 9.2 mg/dL (8.6-10.3); Chloride 102 mmol/L (101-111); EGFR African American 101.9 (>60); EGFR Non-African American 84.2 (>60); Globulin 2.6 g/dL (2-4); Glucose 144 mg/dL (70-100); Potassium 3.4 mmol/L (3.5-5.0); Sodium 135 mmol/L (135-145); Total Protein 6.9 g/dL (6.4-8.9)
[2019-12-21 21:51] LABS: HCG Pregnancy < 0.60 mIU/mL
[2019-12-21 22:31] LABS: Urine Appearance Cloudy; Urine Bilirubin Negative (Negative); Urine Blood 2+ (Negative); Urine Color Yellow; Urine Glucose 1+(50 mg/dL) (Negative); Urine Ketones 1+ (Negative); Urine Nitrite Negative (Negative); Urine Protein Negative (Negative); Urine Specific Gravity 1.027 (1.010-1.030); Urine Urobilinogen Negative (Negative)
[2019-12-21 22:53] LABS: Urine Bacteria 1+ (Absent); Urine Red Blood Cell 1+(3-5/hpf) (Absent); Urine Squamous Epithelial Cell Present (Absent); Urine White Blood Cell Trace(0-5/hpf) (Absent)
[2019-12-21] MEDS ORDERED: Ketorolac INJ* 30 MG/ML 1 ML VIAL IM ONE (23:08)
[2019-12-22 00:24] VITALS: BP 108/73
== END 2019-12-22 00:23 | disposition home or self-care (01) ==
LOC: ED 17:40
DX: N83.201 Unspecified ovarian cyst, right side (principal); J45.909 Unspecified asthma, uncomplicated; Z88.0 Allergy status to penicillin; Z88.1 Allergy status to other antibiotic agents
CPT/HCPCS: 36415; 76830; 80053; 81003; 81015; 83605; 83690; 84702; 85025; 86140; 96372; 99283; J1885